=== PATIENT | male | born 1970 | race Caucasian/White ===

== ENCOUNTER → 2017-11-04 | Outpatient (CLI) | payer OTHER ==
[~2017-11-04] MED LIST: ATOR20TA22 PO; ATOR40TA69 PO; CPAP; DOCU-416 PO; LOR5/325 PO; OMEP-125 PO; OMEP-218 PO; OMEP40CA45 PO; OXYC-865 PO
== END ==
LOC: LAB 17:14
PROVIDERS: ATTEND Internal Medicine
DX: R74.8 Abnormal levels of other serum enzymes (principal); R79.0 Abnormal level of blood mineral; E78.00 Pure hypercholesterolemia, unspecified; G47.30 Sleep apnea, unspecified
CPT/HCPCS: 36415; 83540; 83550; 84466

== ENCOUNTER 2018-08-26 10:41 | Emergency (ER) | payer OTHER ==
[~2018-08-26 10:41] MED LIST changes: +SIL50 PO; +SILD50TA5 PO
--- NOTE | 2018-08-26 10:47 | ER Report ---
History and Physical Time Seen By MD: 10:47 HPI/ROS CHIEF COMPLAINT: Shortness breath, cough HISTORY OF PRESENT ILLNESS: Patient is a 48-year-old male here with complaints of cough, shortness breath which seem to be worsening this morning when the patient woke up. Patient reports that his cough was productive starting this mor margarita. Patient is afebrile at time of evaluation, vital stable. REVIEW OF SYSTEMS: Constitutional: No fever, no chills. Eyes: No discharge. ENT: No sore throat. Cardiovascular: No chest pain, no palpitations. Respiratory: + cough, + shortness of breath. Gastrointestinal: No abdominal pain, no vomiting. Genitourinary: No hematuria. Musculoskeletal: No back pain. Skin: No rashes. Neurological: No headache. Allergies: Coded Allergies: No Known Drug Allergies (Unverified , 08/26/18) Home Meds Active Scripts Prednisone (PREDNISONE) 50 Mg Tablet, 50 MG PO QDAY for 5 Days, #5 TAB Prov:WALKER VEE DO 08/26/18 Sildenafil Citrate (VIAGRA) 50 Mg Tab, 1 TAB PO QDAY PRN for sexual activity, # 18 TAB 4 Refills Prov:JET SHELTON MD 05/04/18 Atorvastatin Calcium (ATORVASTATIN CALCIUM) 40 Mg Tablet, 1 TAB PO QDAY, #90 TAB 4 Refills Prov:JET SHELTON MD 05/04/18 Omeprazole (OMEPRAZOLE) 20 Mg Capsule.dr, 1 CAP PO QDAY, #90 CAP 4 Refills Prov:JET SHELTON MD 05/04/18 Discontinued Reported Medications Cpap (CPAP HOME) [place], CASSIA HS, #6 Ramp time 15-30 minutes, comfort setting 3. 09/29/17 Hx Smoking: No Smoking Status: Never Smoker Exposure to Second Hand Smoke?: No Hx Substance Use Disorder: No Hx Alcohol Use: No Constitutional Physical Exam General Appearance: The patient is alert, has no immediate need for airway protection and no signs of toxicity. NAD Eyes: Pupils equal and round no pallor or injection. ENT, Mouth: Mucous membranes are moist. Respiratory: There are no retractions, lungs are clear to auscultation. Cardiovascular: Regular rate and rhythm. [ ] Gastrointestinal: Abdomen is soft and non tender, no masses, bowel sounds normal. Neurological: No focal neurologic findings Skin: Warm and dry, no rashes. Musculoskeletal: Neck is supple non tender. Extremities are nontender, nonswollen and have full range of motion. DIFFERENTIAL DIAGNOSIS: After history and physical exam differential diagnosis was considered for shortness of breath including but not limited to pulmonary infectious process, COPD, asthma, pulmonary embolus and congestive heart failure. Medical Decision Making Data Points Laboratory Hematology Test 08/26/18 11:03 Red Blood Count 4.69 M/uL (4.00-5.60) Mean Corpuscular Volume 97.5 fL (80.0-96.0) Mean Corpuscular Hemoglobin 33.2 pg (26.0-33.0) Mean Corpuscular Hemoglobin Concent 34.0 g/dL (32.0-36.0) Red Cell Distribution Width 13.1 % (11.5-14.5) Mean Platelet Volume 8.4 fL (7.2-11.1) Neutrophils (%) (Auto) 87.2 % (39.4-72.5) Lymphocytes (%) (Auto) 6.8 % (17.6-49.6) Monocytes (%) (Auto) 5.5 % (4.1-12.4) Eosinophils (%) (Auto) 0.3 % (0.4-6.7) Basophils (%) (Auto) 0.2 % (0.3-1.4) Nucleated RBC Relative Count (auto) 0.0 /100WBC Neutrophils # (Auto) 6.2 K/uL (2.0-7.4) Lymphocytes # (Auto) 0.5 K/uL (1.3-3.6) Monocytes # (Auto) 0.4 K/uL (0.3-1.0) Eosinophils # (Auto) 0.0 K/uL (0.0-0.5) Basophils # (Auto) 0.0 K/uL (0.0-0.1) Nucleated RBC Absolute Count (auto) 0.00 K/uL Sodium Level 136 mmol/L (137-145) Potassium Level 3.8 mmol/L (3.5-5.0) Chloride Level 102 mmol/L (98-107) Carbon Dioxide Level 23 mmol/L (22-30) Blood Urea Nitrogen 11 mg/dl (9-21) Creatinine 1.10 mg/dl (0.66-1.25) Glomerular Filtration Rate Calc > 60.0 Random Glucose 99 mg/dl (75-110) Calcium Level 9.3 mg/dl (8.4-10.2) Total Bilirubin 0.7 mg/dl (0.2-1.3) Aspartate Amino Transf (AST/SGOT) 48 U/L (0-35) Alanine Aminotransferase (ALT/SGPT) 60 U/L (0-56) Alkaline Phosphatase 149 U/L (0-126) B-Type Natriuretic Peptide 11 pg/ml (0-100) Total Protein 8.0 g/dl (6.3-8.2) Albumin 4.8 g/dl (3.5-5.0) Chemistry Test 08/26/18 11:03 White Blood Count 7.1 k/uL (4.5-11.0) Red Blood Count 4.69 M/uL (4.00-5.60) Hemoglobin 15.6 g/dL (14.0-18.0) Hematocrit 45.8 % (42.0-52.0) Mean Corpuscular Volume 97.5 fL (80.0-96.0) Mean Corpuscular Hemoglobin 33.2 pg (26.0-33.0) Mean Corpuscular Hemoglobin Concent 34.0 g/dL (32.0-36.0) Red Cell Distribution Width 13.1 % (11.5-14.5) Platelet Count 180 K/uL (150-450) Mean Platelet Volume 8.4 fL (7.2-11.1) Neutrophils (%) (Auto) 87.2 % (39.4-72.5) Lymphocytes (%) (Auto) 6.8 % (17.6-49.6) Monocytes (%) (Auto) 5.5 % (4.1-12.4) Eosinophils (%) (Auto) 0.3 % (0.4-6.7) Basophils (%) (Auto) 0.2 % (0.3-1.4) Nucleated RBC Relative Count (auto) 0.0 /100WBC Neutrophils # (Auto) 6.2 K/uL (2.0-7.4) Lymphocytes # (Auto) 0.5 K/uL (1.3-3.6) Monocytes # (Auto) 0.4 K/uL (0.3-1.0) Eosinophils # (Auto) 0.0 K/uL (0.0-0.5) Basophils # (Auto) 0.0 K/uL (0.0-0.1) Nucleated RBC Absolute Count (auto) 0.00 K/uL Glomerular Filtration Rate Calc > 60.0 Calcium Level 9.3 mg/dl (8.4-10.2) Total Bilirubin 0.7 mg/dl (0.2-1.3) Aspartate Amino Transf (AST/SGOT) 48 U/L (0-35) Alanine Aminotransferase (ALT/SGPT) 60 U/L (0-56) Alkaline Phosphatase 149 U/L (0-126) B-Type Natriuretic Peptide 11 pg/ml (0-100) Total Protein 8.0 g/dl (6.3-8.2) Albumin 4.8 g/dl (3.5-5.0) EKG/Imaging Imaging Location: [facility] [place] Patient: Luis Daneil Rodriguez : 1970 Visit/Account:[id number] Date of Sevice: 08/26/2018 CHEST PA LAT Indication: RESP DISTRESS Comparison: None. Findings: Lungs: Clear. Mediastinum/pulmonary vasculature: Heart size and pulmonary vasculature are normal. Bones/soft tissues: Normal. IMPRESSION: Clear lungs. ED Course/Re-evaluation ED Course Patient is a 48-year-old male here with complaints of cough, shortness breath starting this morning. Chest x-ray showed no acute findings. Labs were unremarkable, no leukocytosis was present. Patient was started on prednisone for suspected exacerbation. PCP follow-up recommended. Return precautions provided. Decision to Disposition Date: Aug 26, 2018 Decision to Disposition Time: 12:37 Depart Departure Latest Vital Signs Impression: Primary Impression: Shortness of breath Condition: Improved Disposition: HOME OR SELF-CARE Referrals: JET SHELTON MD (PCP) New Scripts Prednisone (PREDNISONE) 50 Mg Tablet 50 MG PO QDAY for 5 Days, #5 TAB Prov: WALKER VEE DO 08/26/18 Patient Instructions: Dyspnea (ED) Additional Instructions: Please drink plenty of water. Please take 1 tablet of prednisone daily for the next 5 days. Please return immediately if you develop worsening shortness breath, fevers, nausea, vomiting, weakness. Please consider establishing a primary care provider. WALKER VEE DO Aug 26, 2018 10:47
[2018-08-26] MEDS: ALBUTEROL/IPRATROPIUM 3 ML NEB NEB SCH ×3 (11:07→12:03)
[2018-08-26 11:10] LABS: PLATELET COUNT, AUTOMATED 180 K/uL (150-450)
[2018-08-26] MEDS ORDERED: KETOROLAC 60 MG/2 ML VIAL IM ONE (11:40)
--- NOTE | 2018-08-26 11:47 | RADIOLOGY IMAGING REPORT ---
FACILITY: [facility] PATIENT NAME: Luis Daniel Rodriguez : 1970 MR: [id number] V: [id number] EXAM DATE: ORDERING PHYSICIAN: WALKER VEE TECHNOLOGIST: Location: [facility] Patient: Luis Daniel Rodriguez : 1970 Visit/Account:[id number] Date of Sevice: 08/26/2018 CHEST PA LAT Indication: RESP DISTRESS Comparison: None. Findings: Lungs: Clear. Mediastinum/pulmonary vasculature: Heart size and pulmonary vasculature are normal. Bones/soft tissues: Normal. IMPRESSION: Clear lungs. Report Dictated By: Leno Sweet at 08/26/2018 11:40 AM Report E-Signed By: Leno Sweet at 08/26/2018 11:43 AM WSN:[id number]
[2018-08-26 12:30] VITALS: BP 132/84
[2018-08-26] MEDS ORDERED: PRED50TA22 PO (12:39)
== END 2018-08-26 12:47 | disposition home or self-care (01) ==
LOC: ER 11:05
DX: R06.02 Shortness of breath (principal)
CPT/HCPCS: 36415; 71046; 83880; 85025; 94640; 99284; J7620; 82040; 82247; 82310; 82374; 82435; 82565; 82947; 84075; 84132; 84155; 84295; 84450; 84460; 84520